=== PATIENT | female | born 1985 | race Caucasian/White ===

== ENCOUNTER 2016-07-14 10:55 | Emergency (ER) ==
--- NOTE | 2016-07-14 11:43 | PROVIDER DOCUMENTATION ---
HPI-General Adult - General Source: patient - History of Present Illness -Gen Adult Nature of Presenting Problems: 31 y/o F presents to ED cc of cough,congestion with fever x 2 days. Pt denies any abd pain and headache. Pt states she has some discomfort in chest and SOB when coughing. Pt is in no distress. Pt states she has been taking OTC meds and they are not helping. Location of Pain/Injury: reports: generalized (aching) Pain Radiation: reports: no radiation Quality of Pain: reports: aching Onset/Duration: reports: 2 days ago Timing: reports: still present Context/Activities at Onset: reports: light activity Modifying Factors: improves with: nothing Associated Symptoms: reports: chest pain, cough, fever/chills, sinus congestion/ drainage, shortness of breath Similar Symptoms Previously?: No Recently seen or treated by another doctor?: No <Quynh Nesbitt - Last Filed: 07/14/16 11:38> <Zechariah Reza - Last Filed: 07/14/16 12:11> - General Chief Complaint: Cold Symptoms Stated Complaint: FEVER/CONGESTION/COUGH Time Seen by Provider: 07/14/16 11:27 Allergies/Adverse Reactions: Patient Allergies Allergy/AdvReac Type Severity Reaction Status Date / Time latex Allergy RASH Verified 05/09/16 21:51 Review of Systems - Adult - REVIEW OF SYSTEMS - ADULT Constitutional: reports: chills, fever Ears, Nose, Mouth & Throat: denies: ear pain, throat pain Cardiovascular: reports: chest pain. denies: palpitations Respiratory: reports: cough, shortness of breath Gastrointestinal: denies: abdominal pain, diarrhea, nausea, vomiting Musculoskeletal: denies: bone pain, back pain Neurological: denies: dizziness/vertigo, headache/migraines <Quynh Nesbitt - Last Filed: 07/14/16 11:38> Past History - Adult - PAST MEDICAL HISTORY-ADULT Review of Records: reports: Old Records Reviewed, Nursing Assessment Review - PRIOR SURGERIES/PROCEDURES Surgical/Procedure History: reports: none - IMMUNIZATION STATUS Childhood Immunizations: See Nurse Assessment Flu Vaccine: See Nurse Assessment - FAMILY HISTORY Family History: cancer, other (COPD) - SOCIAL HISTORY Smoking: less than 1 pack/day Provider spent 3-5 mins advising pt. on dangers of tobacco.: Discussed manners to quit use, and f/u contacts for add'l counseling. Substance Use: denies Alcohol Use Frequency: never Living Situation: family <Quynh Nsebitt - Last Filed: 07/14/16 11:38> Physical Exam-General - PHYSICAL EXAM-ADULT Initial Vital Signs Reviewed: Yes - CONSTITUTIONAL General Appearance: appears well, alert, no apparent distress - EYES Eyes: PERRL/EOMI, pink conjunctivae - HEAD, EARS, NOSE, MOUTH & THROAT HENMT: normocephalic/atraumatic, moist mucous membranes - RESPIRATORY Respiratory: chest non-tender, lungs clear, normal breath sounds - CARDIOVASCULAR Cardiovascular: normal peripheral pulses, no edema, tachycardia - GASTROINTESTINAL (ABDOMEN) Abdominal Exam: normal bowel sounds, non tender, soft, no organomegaly - LYMPHATIC Lymphatic: no adenopathy - MUSCULOSKELETAL Back Exam: normal inspection, no CVA tenderness Extremity: normal range of motion, non-tender, normal gait - SKIN Integumentary: normal color, normal turgor, warm/dry - NEUROLOGIC Neurologic: rn perioperative II-XII nml as tested, grossly normal - PSYCHIATRIC Psych/Mental Status: normal mood/affect, normal thought content, normal thought process, oriented x 3 <Quynh Nesbitt - Last Filed: 07/14/16 11:38> Progress - PLAN OF CARE/RESULTS Progress/Plan/Lab Results: PLAN: FLU TEST <Quynh Nesbitt - Last Filed: 07/14/16 11:38> - PLAN OF CARE/RESULTS Progress/Plan/Lab Results: Orders Category Date Time Status ED: Urine Bedside ORDERED Care 07/14/16 11:03 Active INFLUENZA SCREEN A/B Stat Lab 07/14/16 10:59 Completed Vital Signs - 24 hr 07/14/16 10:58 Temperature 97.5 F L Pulse Rate 101 H Respiratory 18 Rate Blood Pressure 109/63 O2 Sat by Pulse 100 Oximetry - REASSESSMENT Reassessment #1 Time Reassessed: 12:08 (Discussed lab results c pt. She agrees to f/u c OBGYN for preg and quit smoking.) <Zechariah Reza - Last Filed: 07/14/16 12:11> Departure - Departure Certified Medical Emergency: Emergent <Quynh Nesbitt - Last Filed: 07/14/16 11:38> - Departure Time of Disposition Order: 12:08 Certified Medical Emergency: Emergent <Zechariah Reza - Last Filed: 07/14/16 12:11> - Departure DIAGNOSIS: Qualifiers: Weeks of gestation: less than 8 weeks Qualified Code(s): Z3A.01 - Less than 8 weeks gestation of URI (upper respiratory infection) Qualifiers: URI type: unspecified URI Qualified Code(s): J06.9 - Acute upper respiratory infection, unspecified Disposition: HOME 01 Condition: Stable Additional Instructions: ED Follow Up Instructions: You have been treated by a care provider in the Emergency Department. These instructions are being provided to you so you can have an understanding of how to care for yourself upon discharge. Upon discharge from the Emergency Department, you are responsible for making arrangements for follow-up care by a physician of your choice. Take all prescribed medications as directed. Return to the Emergency Department immediately for any new or worsening symptoms. You may call the Physician Referral phone number at [phone] to obtain a list of Physicians who are taking new patients. Prescriptions: Amoxicillin/Pot Clavulanate [Augmentin] 875 mg PO Q12HR #14 tablet Diphenhydramine [Benadryl] 25 mg PO Q4-6H PRN PRN #20 capsule PRN Reason: Itching Pnv No.118/Iron Fumarate/FA [ 19 Chewable Tablet] 1 each PO DAILY #90 tab.chew Referrals: Zechariah Florez MD [STAFF PHYSICIAN] - Forms: Return to School/Parent Work Attestation - Scribe Verification/Attestation Scribe:: Quynh Nesbitt Scribe documention review:: This chart was documented by a scribe and accurately reflects the service the provider performed and the decisions made by the provider. - Physician/ Mid-level Attestation Mid-level provider:: Zechariah Reza <Quynh Nesibtt - Last Filed: 07/14/16 11:38> - Physician/ Mid-level Attestation Patient care was provided by Mid-level provider (SHADOWGRAPH OPERATOR/PA):: Yes Mid-level provider:: Zechariah Reza Mid-level documentation review:: The Mid-level provider documentation, treatment plan and medical decision making was reviewed by the physician who agrees with all treatment and medical decision making by the MLP. <Zechariah Reza - Last Filed: 07/14/16 12:11> Physician Attestation
[2016-07-14 13:43] VITALS: BP 104/76
== END 2016-07-14 13:42 | disposition home or self-care (01) ==
LOC: ED 10:55
DX: O26.891 Other specified pregnancy related conditions, first trimester (principal); Z3A.01 Less than 8 weeks gestation of pregnancy; J06.9 Acute upper respiratory infection, unspecified; R50.9 Fever, unspecified; R05 Cough; R06.02 Shortness of breath; R00.0 Tachycardia, unspecified; O99.331 Smoking (tobacco) complicating pregnancy, first trimester; F17.210 Nicotine dependence, cigarettes, uncomplicated; Z71.6 Tobacco abuse counseling; Z80.9 Family history of malignant neoplasm, unspecified
CPT/HCPCS: 87804; 99282